=== PATIENT | female | born 1955 | race African-American/Black ===

== ENCOUNTER 2017-08-19 08:52 | Inpatient (IN) | payer MEDICAID ==
[~2017-08-19] VITALS: Ht 162.6 cm; Wt 94.8 kg
[2017-08-19] MEDS ORDERED: ALBU18HF2 IH (08:58)
[2017-08-19] MEDS ORDERED: PREDNISONE 20MG TABLET PO ONE (09:45)
[2017-08-19] MEDS ORDERED: IPRATROPIUM BROMIDE (0.02%) 0.5MG/2.5ML NEB HHN ONE (09:45)
[2017-08-19] MEDS ORDERED: ALBUTEROL (0.5%) 2.5MG/0.5ML NEB HHN ONE (09:45)
[2017-08-19 09:54] LABS: BASOPHILS % 0.3 % (0.0-2.0); EOSINOPHILS % 0.1 % (0.0-5.0); HEMATOCRIT. 39.1 % (36.0-48.0); HEMOGLOBIN. 13.1 g/dL (12.0-16.0); LYMPHOCYTES % 23.1 % (20.0-50.0); MEAN CORPUSCULAR HEMOGLOBIN 29.7 pg (28.0-32.0); MEAN CORPUSCULAR VOLUME 88.8 fL (81.0-99.0); MEAN PLATELET VOLUME 7.6 fl (7.4-10.4); MONOCYTES % 7.8 % (2.0-8.0); NEUTROPHILS % 68.7 % (40.0-76.0); PLATELET 298 x1000/uL (130-400); RED CELL DISTRIBUTION WIDTH 13.1 % (11.6-14.6)
[2017-08-19 09:59] LABS: PARTIAL THROMBOPLASTIN TIME 29.9 sec (23.4-31.0); PROTHROMBIN TIME 10.1 sec (9.4-11.6)
[2017-08-19 10:08] LABS: CARBON DIOXIDE 32 mEq/L (21-32); CHLORIDE 102 mEq/L (98-107); TROPONIN I < 0.02 ng/mL (0.00-0.04)
[2017-08-19] MEDS ORDERED: ALBUTEROL (0.083%) 2.5MG/3ML NEB HHN ONE (11:45)
[2017-08-19] MEDS ORDERED: IPRATROPIUM/ALBUTEROL 0.5-3(2.5)MG/3ML NEB INH PRN (13:45)
[2017-08-19] MEDS ORDERED: MAGNESIUM/ALUMINUM HYDROXIDE/SIMETHICONE 30ML UDC PO PRN (13:45)
[2017-08-19] MEDS ORDERED: ONDANSETRON HCL 4MG/2ML VIAL IV PRN (13:45)
[2017-08-19] MEDS ORDERED: KCL 20MEQ/100ML PREMIX 100 ML IV ONE (13:45)
[2017-08-19] MEDS ORDERED: DOCUSATE SODIUM 100MG CAPSULE PO PRN (13:45)
[2017-08-19] MEDS ORDERED: DIPHENHYDRAMINE 50MG/ML VIAL IV PRN (13:45)
[2017-08-19] MEDS ORDERED: LEVOFLOXACIN 500MG PREMIX 100 ML IV SCH (13:45)
[2017-08-19] MEDS ORDERED: GUAIFENESIN 200MG/10ML SUGAR FREE UDC PO PRN (13:45)
[2017-08-19] MEDS ORDERED: NA PHOS,M-B/NA PHOS,DI-BA ENEMA 118ML PR PRN (13:45)
[2017-08-19 14:00] VITALS: BP 164/80
[2017-08-19 14:33] VITALS: BP 164/80
[2017-08-19] MEDS ORDERED: POTASSIUM CHLORIDE 20MEQ TABLET SR PO NR (14:45)
[2017-08-19] MEDS ORDERED: AMLO10TA4 PO (15:08)
[2017-08-19] MEDS ORDERED: HYDR25TA PO (15:09)
[2017-08-19] MEDS ORDERED: INFLUENZA VIRUS VACCINE 0.5ML SYR IM ONE (15:15)
[2017-08-19] MEDS ORDERED: PNEUMOCOCCAL 23-VAL P-SAC VAC 0.5 ML IM ONE (15:15)
[2017-08-19] MEDS: CLONIDINE 0.1MG TABLET PO PRN (15:27)
[2017-08-19] MEDS: ACETAMINOPHEN 325MG TABLET PO PRN ×2 (15:27→20:35)
[2017-08-19] MEDS: LORAZEPAM 0.5MG TABLET PO PRN ×2 (15:28→20:35)
[2017-08-19 16:00] VITALS: BP 166/76
[2017-08-19] MEDS ORDERED: POTASSIUM CHLORIDE INJ 20 MEQ in SODIUM CHLORIDE 0.9% 100 ML IV NR (16:00)
[2017-08-19] MEDS: LEVOFLOXACIN 500MG PREMIX 100 ML IV SCH (17:20)
[2017-08-19] MEDS: ENOXAPARIN 30MG/0.3ML SYR SUBCUT SCH (17:20)
[2017-08-19 19:51] LABS: *AMPHETAMINES SCREEN URINE NEGATIVE (NEGATIVE); *BARBITURATES SCREEN URINE NEGATIVE (NEGATIVE); *BENZODIAZEPINES SCREEN URINE NEGATIVE (NEGATIVE); *COCAINE SCREEN URINE NEGATIVE (NEGATIVE); CANNABINOID URINE SCREEN NEGATIVE (NEGATIVE); METHADONE URINE SCREEN NEGATIVE (NEGATIVE); OPIATES URINE SCREEN PRESUMTIVE POSITIVE (NEGATIVE); PHENCYCLIDINE URINE SCREEN NEGATIVE (NEGATIVE)
[2017-08-19 20:00] VITALS: BP 157/88
[2017-08-19] MEDS: LISINOPRIL 20MG TABLET PO SCH (20:35)
[2017-08-19 21:23] LABS: CREATINE KINASE 186 IU/L (26-192); CREATINE KINASE MB FRACTION 1.8 ng/mL (0.5-3.6); TROPONIN I < 0.02 ng/mL (0.00-0.04)
[2017-08-20] VITALS (7 sets, daily range): BP systolic 130–158; BP diastolic 71–95
[2017-08-20] MEDS: LORAZEPAM 0.5MG TABLET PO PRN ×5 (03:07→23:53)
[2017-08-20] MEDS: ACETAMINOPHEN 325MG TABLET PO PRN ×3 (03:07→18:44)
[2017-08-20] MEDS: IPRATROPIUM/ALBUTEROL 0.5-3(2.5)MG/3ML NEB HHN SCH ×5 (03:56→21:52)
[2017-08-20] MEDS: ENOXAPARIN 30MG/0.3ML SYR SUBCUT SCH ×2 (05:15→18:40)
[2017-08-20 07:09] LABS: CARBON DIOXIDE 31 mEq/L (21-32); CHLORIDE 103 mEq/L (98-107); CREATINE KINASE 170 IU/L (26-192)
[2017-08-20 07:11] LABS: TROPONIN I < 0.02 ng/mL (0.00-0.04)
[2017-08-20] MEDS: LISINOPRIL 20MG TABLET PO SCH ×2 (08:15→21:30)
[2017-08-20] MEDS ORDERED: POTASSIUM CHLORIDE 20MEQ TABLET SR PO SCH (12:50)
[2017-08-20] MEDS: LEVOFLOXACIN 500MG PREMIX 100 ML IV SCH (16:23)
[2017-08-20] MEDS: CLONIDINE 0.1MG TABLET PO PRN (23:53)
[2017-08-21 04:15] VITALS: BP 163/98
[2017-08-21] MEDS: IPRATROPIUM/ALBUTEROL 0.5-3(2.5)MG/3ML NEB HHN SCH ×2 (04:59→09:58)
[2017-08-21] MEDS: ENOXAPARIN 30MG/0.3ML SYR SUBCUT SCH (05:11)
[2017-08-21] MEDS: LORAZEPAM 0.5MG TABLET PO PRN ×2 (05:24→09:28)
[2017-08-21] MEDS: LISINOPRIL 20MG TABLET PO SCH (09:00)
[2017-08-21] MEDS ORDERED: HYDROCODONE/ACETAMINOPHEN 5/325MG TABLET PO PRN (10:30)
[2017-08-21] MEDS ORDERED: METHYLPREDNISOLONE SOD SUCC 40 MG/ML VIAL IV SCH (12:00)
[2017-08-21] MEDS ORDERED: NICOTINE 14MG PATCH TD SCH (12:00)
[2017-08-21] MEDS ORDERED: BUDESONIDE 0.5MG/2ML NEB HHN SCH (16:00)
== END 2017-08-21 11:16 | disposition home or self-care (01) | DRG 133 ==
LOC: ER 09:18 → ENRESERV 12:13 → 7WST 14:36
PROVIDERS: ADMIT Internal Medicine; ATTEND Internal Medicine
DX: J96.00 Acute respiratory failure, unspecified whether with hypoxia or hypercapnia (principal); Z99.81 Dependence on supplemental oxygen; E44.0 Moderate protein-calorie malnutrition; J44.1 Chronic obstructive pulmonary disease with (acute) exacerbation; J45.901 Unspecified asthma with (acute) exacerbation; I10 Essential (primary) hypertension; E87.6 Hypokalemia; F17.210 Nicotine dependence, cigarettes, uncomplicated; G89.29 Other chronic pain; M54.9 Dorsalgia, unspecified; Z82.49 Family history of ischemic heart disease and other diseases of the circulatory system; Z68.35 Body mass index [BMI] 35.0-35.9, adult
CPT/HCPCS: 36415; 71045; 80053; 80061; 80305; 82550; 82553; 83036; 84484; 85025; 85610; 85730; 93005; 93970; 94640; 94644; 99291; J1650; J1956; J3480; J7050; J7060; J7512; J7611; J7620

== ENCOUNTER 2022-12-06 08:04 | Emergency (ER) | payer SELFPAY ==
[~2022-12-06] VITALS: Ht 160 cm; Wt 100.0 kg
[~2022-12-06 08:04] MED LIST: ALBU18HF2 IH; AMLO10TA4 PO; HYDR25TA PO
[2022-12-06 08:15] VITALS: BP 138/86
[2022-12-06] MEDS ORDERED: ACETAMINOPHEN WITH CODEINE 300/30MG TABLET PO ONE (08:15)
[2022-12-06] MEDS ORDERED: IBUP-2028 PO (08:56)
== END 2022-12-06 09:48 | disposition home or self-care (01) ==
LOC: ER 08:04
DX: S90.31XA Contusion of right foot, initial encounter (principal); X58.XXXA Exposure to other specified factors, initial encounter; Y93.89 Activity, other specified; Y92.89 Other specified places as the place of occurrence of the external cause; Y99.8 Other external cause status; J45.909 Unspecified asthma, uncomplicated; I10 Essential (primary) hypertension
CPT/HCPCS: 73620; 99283